=== PATIENT | female | born 1955 | race Caucasian/White ===

== ENCOUNTER 2023-02-01 11:23 | Outpatient (CLI) | payer MEDICARE, OTHER, SELFPAY ==
[2023-02-01 11:26] LABS: Bacteria Urine Few; Squamous Epithelial Cell Urine Few (None-Few)
[2023-02-01 11:27] LABS: RBC Urine 0-2 (0-2)
== END 2023-02-01 11:24 | disposition home or self-care (01) ==
PROVIDERS: PCP Family Medicine; Visit Provider Registered Nurse
DX: R30.0 Dysuria (principal)
CPT/HCPCS: 81015; 87086; 87186

== ENCOUNTER 2023-03-07 08:30 | Outpatient (CLI) | payer MEDICARE, OTHER, SELFPAY | END 2023-03-07 08:31 | disposition home or self-care (01) | LOC: NFLDREF 03-08 19:16 | PROVIDERS: PCP Family Medicine; Referring Provider Family Medicine; Visit Provider Registered Nurse | DX: N39.0 Urinary tract infection, site not specified (principal) | CPT/HCPCS: 87086; 87186 ==